=== PATIENT | male | born 1995 | race Caucasian/White ===

== ENCOUNTER 2021-07-10 15:49 | Emergency (ER) | payer BC ==
[~2021-07-10] VITALS: Wt 68.0 kg
[~2021-07-10 15:49] MED LIST: AUGMENTIN 875875 MG PO; BACTRIM DS 8001 TA1 PO; KEFLEX250 MG/5 M PO
[2021-07-10] MEDS ORDERED: ZITHROMAX250 MG PO (19:19)
[2021-07-10] MEDS ORDERED: PREDNISONE20 M1 PO (19:19)
[2021-07-10] MEDS ORDERED: PROVENTIL HFA6.7 GM INH (19:19)
== END 2021-07-10 20:00 | disposition home or self-care (01) ==
LOC: ED 15:49
DX: U07.1 COVID-19 (principal); J12.82 Pneumonia due to coronavirus disease 2019; R11.10 Vomiting, unspecified